=== PATIENT | male | born 1965 | race Caucasian/White ===

== ENCOUNTER 2024-12-11 11:00 | Outpatient (AMB) | payer MEDICARE, MEDICAID, SELFPAY ==
--- NOTE | 2024-12-11 11:01 | MHC.OFFVIS ---
Intake Visit Reasons: 1 year follow up Accompanied by: staff members Allergies haloperidol (From Haldol) Allergy (Unknown, Verified 12/11/24 11:01) Unknown iodine Allergy (Unknown, Verified 12/11/24 11:01) Unknown risperidone (From Risperdal) Allergy (Unknown, Verified 12/11/24 11:01) Unknown Medication List - Last Reconciled 12/11/24 by Heather Ojeda CNP gabapentin 600 mg PO TID 30 days levetiracetam 500 mg PO BID levothyroxine 200 mcg PO DAILY quetiapine 25 mg PO BID sertraline 75 mg PO DAILY HPI Comments Details: He was doing okay. He was taking levetiracetam and gabapentin. No medication side effects. No seizures. Walking with a walker, no falls. No significant headaches or dizziness. No behavior problems. Sleep was okay, now using CPAP. He has mild encephalopathy and secondary seizures. The seizures are partial with secondary generalization starting at age 8. He has not had a seizure in many years. Occasional slightly drooling. [facility] Medical History (Updated 12/11/24 @ 11:22 by Heather Ojeda CNP) Goiter Surgical History (Updated 12/11/24 @ 11:07 by Heather Ojeda CNP) S/P TURP Review of Systems Const Denies chills, Denies daytime sleepiness, Denies difficulty sleeping, Denies fatigue, Denies fever(s), Denies frequent falls, Denies headache(s), Denies increased appetite, Denies poor appetite, Denies snoring, Denies weakness, Denies weight gain and Denies weight loss Eyes Denies loss of vision ENT Denies vertigo, Denies dizziness, Denies headache(s) and Denies neck pain Card Denies chest pain at rest, Denies chest pain with activity, Denies syncope, Denies leg edema, Denies palpitations, Denies dyspnea and Denies dyspnea on exertion Resp Denies cough, Denies dyspnea, Denies dyspnea on exertion and Denies snoring GI Denies abdominal pain, Denies constipation, Denies heartburn, Denies diarrhea and Denies nausea Denies urinary frequency, Denies urinary incontinence and Denies urinary urgency Musc Denies abnormal gait, Denies back pain, Denies myalgias, Denies arthralgias, Denies neck pain, Denies numbness and Denies tingling Neuro Denies abnormal gait, Denies vertigo, Denies dizziness, Denies syncope, Denies frequent falls, Denies headache(s), Denies lack of coordination, Denies loss of vision, Denies memory loss, Denies numbness, Denies Other visual disturbances, Denies restless legs, Denies seizure-like activity, Denies tingling, Denies paresthesias, Denies tremor(s) and Denies weakness Psych Denies anxiety, Denies depression, Denies auditory hallucinations, Denies memory loss and Denies visual hallucinations Endo Denies fatigue and Denies palpitations Physical Exam Const Other: General Appearance:? normal, in no acute distress. Heart:? S1, S2 normal, no murmurs. Lungs:? clear anteriorly and posteriorly. Musculoskeletal:? normal. Extremities:? no edema. Psych:? alert. Neuro Other: Abnormal Neurological Findings:?Limited abilities. Limited verbalization and echolalia. Follows simple commands. Unsteady gait with walker. 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 Cranial Nerves: Pupils are equal, round, and reactive to light. External ocular muscles are intact. Visual boo are full, no ptosis. Face is symmetrical, no facial weakness or droop. Facial sensations are normal. Tongue protrudes in midline. Palate elevates symmetrically. Shoulder shrugging is normal Motor Examination: Normal muscle tone, bulk and strength. No atrophy or fasciculations. No drift of the extended upper extremities. DTR 2+. Plantars are flexor. Sensory Exam: Normal light touch, temperature, pinprick, vibration, and joint-position sensations. Rhomberg sign is absent. Coordination: No ataxia. No titubation. Gait Exam: Unsteady with contact guidance or walker. Cerebellar Signs: [id number] is okay. Extrapyramidal System: No tremor, rigidity with normal facial expressions. No bradykinesia. No bradyphrenia. Normal arm swing and posture. No propulsion or retropulsion. Speech: Limited verbalization and echolalia. Assessment & Plan Assessment & Plan (1) Seizure disorder: Code(s): G40.909 - Epilepsy, unspecified, not intractable, without status epilepticus Category: Medical Plan: Continue gabapentin 600mg 1 tablet by mouth three times a day. Continue levetiracetam 500mg 1 tablet by mouth twice a day. (2) hypoxic-ischemic encephalopathy: Code(s): P91.60 - Hypoxic ischemic encephalopathy [HIE], unspecified Category: Medical Qualifiers: Hypoxic ischemic encephalopathy severity: unspecified severity Qualified Code(s): P91.60 - Hypoxic ischemic encephalopathy [HIE], unspecified Plan . Coding Level of Care Code Est Pt Level 4 (23882) Diagnoses Seizure disorder G40.909 hypoxic-ischemic encephalopathy, unspecified severity P91.60 Hypoxic ischemic encephalopathy severity: unspecified severity
--- OUTSIDE RECORDS SUMMARY | 2024-12-11 13:06 | XMS_ITS ---
Author Name [facility] Organization Unknown Care Team Organization Name Specialty Phone Email Start Date End Da [facility] 09/25/2024
--- OUTSIDE RECORDS SUMMARY | 2024-12-11 13:06 | XMS_ITS | Clinical Summary ---
Author Organization [facility] Address [address] [place] [address] Phone Care Team Providers Care Elastic Attacher Coverstitch Name Role Phone Tiarra Connolly MD Primary Care Provider [phone] Allergies Active Allergy Reactions Criticality Noted Date Comments Haloperidol 05/10/2007 Other Reaction(s): OTHER Muscle spasm Iodine 05/08/2007 Other Reaction(s): Flushing, feeling of warmth Risperidone 05/08/2007 Other Reaction(s): OTHER Medications ketoconazole (NIZORAL) 2 % cream Apply topically. - Apply externally 3 Active ceramides 1,3,6-II (CERAVE TOP) EMOLLIENT (CERAVE EX): Apply topically. - Apply externally Active acetaminophen (TYLENOL) 325 mg tablet Take 2 Tablets by mouth every 6 hours as needed for Pain. Do not exceed 8 tablets in 24 hours. If there is no improvement in 48 hours, please contact doctor. 4 Active guaiFENesin (ROBITUSSIN) 100 mg/5 mL liquid Take 5 mL by mouth 3 times daily as needed for Cough. Do not exceed 3 doses in 24 hours, contact doctor in 48 hours if no improvement 4 Active sodium phosphates (Fleet Enema Extra) 19-7 gram/[address] 1 Enema rectally as needed (for constipation on day 3 of no bowel movement). 4 Active sertraline (ZOLOFT) 25 mg tablet 2 times a day - prescribed by Deion Mitchell (Psych) 4 Active bacitracin 500 unit/gram ointment Apply a thin layer topically to minor wounds twice daily as needed until healed. Notify care team if not better within 7 days. 3 Active peg 400-propylene glycol (Lubricant Eye, PG-PEG 400,) 0.4-0.3 % drops 3 Active ketoconazole (NIZORAL) 2 % shampoo 3 Active triamcinolone (KENALOG) 0.1 % cream Apply topically 2 times daily. Active sodium phosphate,mono- dibasic (FLEET ENEMA RECT) Place 1 Enema rectally daily as needed. If no BM in 3 days. Active gabapentin (NEURONTIN) 600 mg tablet Take 600 mg by mouth 3 times daily. Active levETIRAcetam (KEPPRA) 500 mg tablet Take 500 mg by mouth 2 times daily. Active QUEtiapine (SEROquel) 25 mg tablet Take 25 mg by mouth 2 times daily. 4 Active sertraline (ZOLOFT) 50 mg tablet Take 1 Tablet by mouth daily. - Oral Active LORazepam (ATIVAN) 0.5 mg tablet Take 1 tablet (0.5 mg total) by mouth. 1 tab one hour prior to dental appointment Active loratadine (CLARITIN) 10 mg tablet Take 1 tablet (10mg) by mouth once daily in the morning (for seasonal allergies) 90 tablet 1 5 Active flaxseed oiL 1,000 mg capsule Take 1 capsule (1,000 mg total) by mouth 1 (one) time each day. 90 capsule 1 5 Active psyllium (METAMUCIL) 0.52 gram capsule Take 1 capsule (0.52 g total) by mouth 1 (one) time each day. Psyllium 51.7 % Powd Pack: Take 1 Package by mouth daily. - Oral 30 capsule 5 5 Active senna-docusate (Stool Softener-Laxati ve) 8.6-50 mg per tablet Take 1 tablet (8.6mg-50mg) by mouth twice daily. hold if more than 2 bowel movements in 24 hours, then resume (for constipation) 30 tablet 5 5 Active levothyroxine (SYNTHROID, LEVOTHROID) 200 mcg tablet Take 1 tablet (200mcg) by mouth once daily in the morning, monday to monday only. do not give on monday or monday (for hypothyroidism) 66 tablet 5 Active polyethylene glycol (MIRALAX) 17 gram packet Mix 1 packet (17 grams) in 8oz of liquid & give by mouth once daily in the evening. hold for 1 day for loose stools (for constipation) 90 packet 5 Active Active Problems Problem Noted Date Diagnosed Date RBBB 12/28/2023 Assessment & Plan (12/28/2023 3:28 PM EST): Most of the time, this is idiopathic in nature and does not need any further investigation. Patient is asymptomatic. Orders: Ambulatory referral to Cardiology ECG 12 lead Transthoracic echocardiogram (TTE) complete with PRN contrast, bubble, strain, and 3D order panel; Future Eczema 04/02/2020 Hematuria 07/22/2011 Overview (11/10/2023): Left Renal Hemorrhage/Hematoma; 07/18; Left ureteral stent; Drs. Pina/Joe Mentally disabled 06/03/2008 Overview (11/10/2023): more functionally retarded than intellectually retarded according to doctors. from family/DDS files [facility]; Latonya Albarran (psych) Goiter 05/08/2007 Overview (11/10/2023): Partial removal Hypothyroidism 10/25/2005 Overview (11/10/2023): 2/2 thyroid gland removal Assessment & Plan (12/21/2023 5:39 PM EST): Follow-up with endocrinology and continue current above levothyroxine for hypothyroidism. Seizure disorder (CMS/HCC V24, CMS/HCC V28) 09/06 Overview (11/10/2023): Neuro (10/03/17): stat gabapentin 600mg TID- followed by Dr Cardoza Edema 11/01/2004 Encounters Date Type Department Care Team Description 12/02/2024 11:00 AM EDT Office Visit Internal Medicine - [address] [phone] Tiarra Connolly MD Hypothyroidism, unspecified type (Primary Dx); Seizure disorder ([facility] V24, [facility] V28); Mentally disabled; RBBB; Polyp of colon, unspecified part of colon, unspecified type; Constipation, unspecified constipation type; Positive colorectal cancer screening using Cologuard test; DEVON on CPAP; Bipolar affective disorder, remission status unspecified ([facility] V24, [facility] V28) 10/28/2024 Telephone Pulmonology [facility] [address] [phone] Chloé Ferreira NP 10/15/2024 Telephone Pulmonology [facility] [address] [phone] Tova Hernandez [place] 10/14/2024 Telephone Pulmonology [facility] [address] [phone] Delphine Rose, [place] 10/11/2024 Telephone Pulmonology [facility] [address] [phone] Chloé Ferreira NP 10/09/2024 9:45 AM EDT Office Visit Pulmonology [facility] [address] [phone] Chloé Ferreira NP Mild sleep apnea (Primary Dx); Sleep related hypoxia; Chronic fatigue; Seizure disorder ([facility] V24, [facility] V28); Obesity (BMI 30-39.9) from Last 3 Months Immunizations Immunization Administration Dates Next Due Influenza Quadravalent, MDCK , 0.5ml, preservative free (Flucelvax) 6mo and older 10/19/2021,12/10/2020,01/05/2018 Influenza trivalent, with pr eservative (Fluzone; Afluria) 6mo and older 12/04/2015,11/20/2013,11/07/2012,10/27,12/15/2010,02/24/2010,12/14/2007 ,11/25/2005,11/01/2004 PPD Test 04/19/2013, 4,12/10/2007,11/26 Pfizer SARS-CoV-2 COVID-19, mRNA, LNP-S, preservative free 12/22/2020 Pneumococcal polysaccharide 23 valent (Pneumovax 23) 2yo and older 11/25/2005 Td Tetanus diptheria (Tdvax) 7yo and older 11/27/2003 Tdap Tetanus diptheria acell ular pertussis (Boostrix; Adacel) 7yo and older 04/26/2023,04/17/2013 Zoster recombinant (Shingrix ) 19yo and older 04/06/2022,02/02/2022 Surgical History Surgery Date Site/Laterality Comments OTHER SURGICAL HISTORY 05/14 PROCEDURE: CHG ASSAY OF PROSTATE SPECIFIC ANTIGEN FREE; COMMENT: 0.9 OTHER SURGICAL HISTORY 06/13 PROCEDURE: AZ OPEN TX ACUTE SHOULDER DISLOCATION; COMMENT: Right OTHER SURGICAL HISTORY 2001, 2006 PROCEDURE: AZ THYROIDECTOMY TOTAL/COMPLETE OTHER SURGICAL HISTORY 2006 PROCEDURE: AZ BRNCHSC W/TRACHEAL/BRONCHIAL DILAT/CLSD RDCTJ FX; COMMENT: Reuben OTHER SURGICAL HISTORY 2006 PROCEDURE: TRACHEOSTOMY OR LARNGECTOMY TURP / TRANSURETHRAL INCISIO N / DRAINAGE PROSTATE 11/17 PROCEDURE: HISTORICAL TURP; COMMENT: Yovani Medical History Medical History Date Comments Edema 11/01/2004 DX:Edema Acute upper respiratory infe ctions of unspecified site 11/01/2004 DX:Acute upper respiratory infections of unspecified site Acute upper respiratory infe ctions of unspecified site 11/01/2004 DX:Acute upper respiratory infections of unspecified site Other convulsions 09/21/2005 DX:Other convu lsions Thyrotoxicosis without menti on of goiter or other cause, without mention of thyrotoxic crisis or storm 10/25/2005 DX:Thyrotoxicosis withou t mention of goiter or other cause, without mention of thyrotoxic crisis or storm Goiter 05/08/2007 DX:Goiter Retardation 06/03/2008 DX:Retardation; COMMENT: [facility] Eczema 04/02/2020 DX:Eczema Family History Medical History Relation Name Comments Other: CORONARY ATERY DISEASE Father Thyroid disease Mother Lung Cancer Relation Name Status Comments Father Mother Social History Tobacco Use Types Packs/Day Years Used Date Smoking Tobacco: Never Smokeless Tobacco: Never Tobacco Cessation:Counseling Given: No Alcohol Use Standard Drinks/Week Comments No 0 (1 standard drink = 0.6 oz pur e alcohol) Sex and Gender Information Value Date Recorded Sex Assigned at Male 03/14/2024 3:40 PM EST Legal Sex Male 1:02 PM EST Gender Identity Male 02/14/2024 5:09 PM EST Sexual Orientation Not on file Obstetrics History Last Filed Vital Signs Vital Sign Reading Time Taken Comments Blood Pressure 90/54 12/02/2024 11:06 AM EDT auto Pulse 84 12/02/2024 11:06 AM EDT Temperature 36.3 C (97.4 F) 10/09/2024 9:51 AM EDT Respiratory Rate 16 10/09/2024 9:51 AM EDT Oxygen Saturation 93% 10/09/2024 9:51 AM EDT Inhaled Oxygen Concentration - - Weight 99.2 kg (218 lb 12.8 oz) 025 11:06 AM EDT Height 180.3 cm (5' 11 ) 12/02/2024 11: 06 AM EDT Body Mass Index 30.52 12/02/2024 11:06 AM EDT Plan of Treatment Upcoming Encounters Date Type Department Care Team (Late st Contact Info) Description 01/08/2025 10:35 AM EST Office Visit Pulmonology - [place] [address] [place] [phone] Chloé Ferreira NP [address] [place] [phone] 04/04/2025 10:00 AM EST Office Visit Internal Medicine - [address] [phone] Damari Velasco, NIKKI [address] [place] [address] 06/11/2025 9:45 AM EDT Office Visit Endocrinology - [place] [address] [place] [address] Leonela Saba PA [address] [place] [address] 07/07/2025 10:45 AM EDT Office Visit Internal Medicine - [facility] [address] [place] [address] Damari Velasco, NIKKI [address] [place] [address] Health Maintenance Due Date Last Done Comments HIV Screening 01/15/2022 Medicare Annual Wellness Visit 01/15/2022 Social Influencers of Health Screening 01/15/2022 Depression Screening 02/07/2024 Influenza Vaccine (#1) 2024 , 11/26/2022, 10/19/2021, Additional history exists Cholesterol Screening (Lipid Panel) 07/11/2029 07/11/2024, 04/26/2023 Colorectal Cancer Screening: Colonoscopy 10/01/2031 09/30/2021 DTaP,Tdap,and Td Vaccines (4 - Td or Tdap) 04/25/2033 04/26/2023, 04/17/2013, 11/27/2003 RSV Immunization Adult Patients (1 - 1-dose 75+ series) 12/18/2038 Hepatitis C Screening Completed 11/07/2012 Zoster Vaccines Completed 04/06/2022, 02/02/2022 Colorectal Cancer Screening: FIT-DNA (Cologuard) Discontinued 06/26/2023 COVID-19 Vaccine Completed 05/01/2024, , 03/12/2020, Additional history exists Pneumococcal Vaccine: 50+ Years Completed 07/31/2024, 11/25/2005, 11/14/2005 HIB Vaccines Aged Out No longer eligi ble based on patient's age to complete this topic HPV Vaccines Aged Out No longer eligi ble based on patient's age to complete this topic Hepatitis A Vaccines Aged Out No long er eligible based on patient's age to complete this topic Hepatitis B Vaccines Aged Out No long er eligible based on patient's age to complete this topic IPV Vaccines Aged Out No longer eligi ble based on patient's age to complete this topic MMR Vaccines Aged Out No longer eligi ble based on patient's age to complete this topic Meningococcal ACWY Vaccine Aged Out N o longer eligible based on patient's age to complete this topic Meningococcal B Vaccine Aged Out No l onger eligible based on patient's age to complete this topic RSV Immunization Patients Under 20 months Aged Out No longer eligible based on patient's age to complete this topic Varicella Vaccines Aged Out No longer eligible based on patient's age to complete this topic Procedures Procedure Name Priority Date/Time Associated Diagnosis Comments POLYSOMNOGRAM WITH CPAP Routine 10/08/2024 2:09 PM EDT Sleep related hypoxia Chronic fatigue Moderate intellectual disability Seizure disorder (CMS/HCC V24, CMS/HCC V28) Mild sleep apnea POLYSOMNOGRAM WITH CPAP Routine 09/23/2024 10:10 AM EDT LIPID PANEL WITH REFLEX TO DIRECT LDL Routine 07/11/2024 9:43 AM EDT Routine general medical examination at a health care facility COLONOSCOPY Routine 09/30/2021 HEPATITIS C SCREENING Routine 11/07/2012 from Last 3 Months or Most Recently Relevant to Health Maintenance Results * Polysomnography with PAP (10/08/2024 2:09 PM EDT) Chloé Ferreira NP [facility] ORDER[facility] Final Result * Polysomnography with PAP (09/23/2024 10:10 AM EDT) Historical Provider [facility] ORDERABLES F inal Result * Lipid panel with reflex to direct LDL (07/11/2024 9:43 AM EDT) [facility] Signature Cholesterol 158 0 - 200 mg/dL LAB CHEMISTRY METHOD 07/11/2024 3:35 PM EDT [facility] Triglycerides 66 0 - 150 mg/dL LAB CHEMISTRY METHOD 07/11/2024 3:[address] [facility] HDL 49 >=40 mg/dL LAB CHEMISTRY METHOD 07/11/2024 3:[address] [facility] LDL Calculated 96 0 - 100 mg/dL LAB CHEMISTRY METHOD 07/11/2024 3:[address] [facility] VLDL Cholesterol Hunter 13.2 mg/dL LAB CHEMISTRY METHOD 07/11/2024 3:[address] [facility] Non HDL Chol. (LDL+VLDL) 109 <145 mg/dL LAB CHEMISTRY METHOD 07/11/2024 3:[address] [facility] Chol/HDL Ratio 3.2 0.0 - 4.4 LAB CHEMISTRY METHOD 07/11/2024 3:[address] [facility] Blood Venous blood specimen / Unknown Venipuncture / Unknown 07/11/2024 9:43 AM EDT 07/11/2024 9:43 AM EDT Cordell Melton MD LAB BLOOD ORDERABLES Stefanie l Result [facility] [address] [place] [address], * Colonoscopy (09/30/2021) Colonoscopy Abstracted, No interpretation Anatomical Region Laterality Modality Other Historical Provider HEALTH MAINTENANCE Final Result * Hepatitis C Screening (11/07/2012) Pathologist [facility] Hepatitis C Screening Abstracted Historical Ish [facility] MAINTENANCE Final Result from Last 3 Months or Most Recently Relevant to Health Maintenance Insurance MEDIC[place] Care Teams Elastic Attacher Coverstitch Relationship Specialty Start Date End Date Tiarra Connolly MD [address] [place] [address] PCP - General Internal Medicine 12/02/24
== END 2024-12-11 11:25 | disposition home or self-care (01) ==
LOC: HO.HSM 11:01
PROVIDERS: PCP Internal Medicine; Referring Provider Internal Medicine; Visit Provider Registered Nurse
DX: G40.909 Epilepsy, unspecified, not intractable, without status epilepticus (principal); P91.60 Hypoxic ischemic encephalopathy [HIE], unspecified
CPT/HCPCS: 99214

== ENCOUNTER → 2024-12-11 11:00 | Outpatient (BNVA) | payer MEDICARE, MEDICAID, SELFPAY | PROVIDERS: PCP Internal Medicine; Referring Provider Internal Medicine; Visit Provider Registered Nurse | DX: G40.909 Epilepsy, unspecified, not intractable, without status epilepticus (principal); P91.60 Hypoxic ischemic encephalopathy [HIE], unspecified | CPT/HCPCS: 99212 ==